=== PATIENT | male | born 2000 | race Caucasian/White ===

== ENCOUNTER 2019-03-31 10:08 | Emergency (ER) | payer BC ==
[2019-03-31 10:50] VITALS: BP 121/57
--- NOTE | 2019-03-31 11:28 | UC ---
Skin Complaint HPI - HPI Summary HPI Summary: Pt presents with sudden onset of itchy rash on right hand/fingers that began two days ago. Pt states that he is concerned that he has poison theodore but has no known contact with the plant. Pt also concerned that he has more "phlegm than usual" and is coughing more frequently. - History of Current Complaint Chief Complaint: UCRespiratory Time Seen by Provider: 03/31/19 11:09 Stated Complaint: SKIN CONCERN,COUGH Hx Obtained From: Patient Onset/Duration: Sudden Onset, Lasting Days, Still Present Timing: Constant Onset Severity: Mild Current Severity: Mild Pain Intensity: 0 Location: Hand (Left) Character: Pruritus, Raised Aggravating Factor(s): Nothing Alleviating Factor(s): Nothing Associated Signs & Symptoms: Positive: Cough, Rash Related History: Possible Reaction to: Environmental Exposure - Allergy/Home Medications Allergies/Adverse Reactions: Allergies Allergy/AdvReac Type Severity Reaction Status Date / Time No Known Allergies Allergy Verified 03/31/19 10:41 PMH/Surg Hx/FS Hx/Imm Hx Previously Healthy: Yes - Surgical History Surgical History: Yes Surgery Procedure, Year, and Place: wisdom teeth - Family History Known Family History: Positive: Cardiac Disease - Social History Occupation: Student - [employer] Lives: Dormitory/Roommates Alcohol Use: Occasionally Substance Use Type: None Smoking Status (MU): Never Smoked Tobacco Have You Smoked in the Last Year: No - Immunization History Vaccination Up to Date: Yes Review of Systems All Other Systems Reviewed And Are Negative: Yes Constitutional: Positive: Negative Skin: Positive: Rash - bialteral hands, right more than left ENT: Positive: Other - nasal and chest congestion Respiratory: Positive: Cough Cardiovascular: Positive: Negative Gastrointestinal: Positive: Negative Genitourinary: Positive: Negative Motor: Positive: Negative Neurovascular: Positive: Negative Musculoskeletal: Positive: Negative Neurological: Positive: Negative Psychological: Positive: Negative Is Patient Immunocompromised?: No Physical Exam Triage Information Reviewed: Yes Appearance: Well-Appearing Vital Signs: Initial Vital Signs Temp 97.6 F 03/31/19 10:42 Pulse 75 03/31/19 10:42 Resp 16 03/31/19 10:42 BP 121/57 03/31/19 10:42 Pulse Ox 100 03/31/19 10:42 Vital Signs Reviewed: Yes Eye Exam: Normal ENT Exam: Normal ENT: Positive: Normal ENT inspection Dental Exam: Normal Neck exam: Normal Respiratory Exam: Normal Musculoskeletal Exam: Normal Neurological Exam: Normal Psychological Exam: Normal Skin: Positive: Rashes - pin prick erythematous, slighted raised areas on bialteral hands and fingers, slight appreance of roni tracks. Pt had no known contact with poison theodore. Course/Dx - Differential Diagnoses - Skin Complaint Differential Diagnoses: Contact Dermatitis, Scabies - Diagnoses Provider Diagnosis: Itchy skin, Rash and nonspecific skin eruption, Chest congestion Discharge ED - Sign-Out/Discharge Documenting (check all that apply): Patient Departure All imaging exams completed and their final reports reviewed: No Studies - Discharge Plan Condition: Stable Disposition: HOME Prescriptions: Cetirizine* [ZyrTEC 10 MG TAB*] 10 mg PO DAILY #10 tab Permethrin 5% CREAM* 1 applic TOPICAL SEE INSTRUCTIONS #1 tube predniSONE TAB* [Deltasone 10 MG TAB*] 30 mg PO DAILY #12 tab Patient Education Materials: Scabies (ED), Dermatitis (ED) Referrals: [facility] [place] [place] [facility] [Outside] No Primary Care Phys,NOPCP [Primary Care Provider] - - Billing Disposition and Condition Condition: STABLE Disposition: Home - Attestation Statements Provider Attestation: I was available for consult. This patient was seen by the JONEL. The patient was not presented to , seen by or examined by -Katie Shah MD
== END 2019-03-31 11:36 | disposition home or self-care (01) ==
LOC: UCCORT 10:08
DX: R21 Rash and other nonspecific skin eruption (principal); L29.9 Pruritus, unspecified; R09.89 Other specified symptoms and signs involving the circulatory and respiratory systems; R09.81 Nasal congestion
CPT/HCPCS: 99202; G0463